=== PATIENT | male | born 1980 | race Two or more races ===

== ENCOUNTER 2021-08-08 03:50 | Emergency (ER) | payer MEDICAID, OTHER ==
[~2021-08-08] VITALS: Ht 172.7 cm; Wt 91.8 kg
[~2021-08-08 03:50] MED LIST: NO HOME MEDS
[2021-08-08] MEDS ORDERED: morphine 4 MG/ML inj SYRINge IV ONE ×2 (04:10→05:50)
[2021-08-08] MEDS ORDERED: ondansetron/PF 4mg/2ml inj IV ONE (04:10)
[2021-08-08 04:48] LABS: EOSINOPHILS # (AUTO) 0.3 X10'3 (0-0.9); HEMATOCRIT 46.6 % (42.0-52.0); MEAN CORPUSCULAR HEMOGLOBIN 29.9 PG (27.0-31.0); MEAN PLATELET VOLUME 8.2 FL (7.4-10.4); WHITE BLOOD COUNT 7.1 X10'3 (4.5-11.0)
[2021-08-08 04:50] LABS: BASOPHILS # (AUTO) 0.1 X10'3 (0-0.2); EOSINOPHILS % (AUTO) 4.2 % (0-6); LYMPHOCYTES # (AUTO) 2.9 X10'3 (1.1-4.8); LYMPHOCYTES % (AUTO) 41.3 % (21-51); MEAN CORPUSCULAR HGB CONC 34.3 g/dL (33.0-36.5); MEAN CORPUSCULAR VOLUME 87.2 FL (78-98); MONOCYTES # (AUTO) 0.9 X10'3 (0-0.9); MONOCYTES % (AUTO) 12.2 % (2-12); NEUTROPHILS # (AUTO) 2.9 X10'3 (1.8-7.7); NEUTROPHILS % (AUTO) 41.3 % (42-75); PLATELET COUNT 297 X10'3 (140-440); RED BLOOD COUNT 5.34 X10'6 (4.70-6.10); RED CELL DISTRIBUTION WIDTH 13.7 % (11.5-14.5)
[2021-08-08] MEDS ORDERED: metoclopramide 5 mg/ml inj IV ONE (05:15)
[2021-08-08 05:16] LABS: ALANINE AMINOTRANSFERASE 42 U/L (12-78); ALBUMIN 3.9 G/DL (3.4-5.0); ALBUMIN/GLOBULIN RATIO 1.1 (1.1-1.5); ALKALINE PHOSPHATASE 95 IU/L (46-116); ANION GAP 11 (8-16); ASPARTATE AMINO TRANSFERASE 31 U/L (10-37); BILIRUBIN,TOTAL 0.2 MG/DL (0.1-1.0); BLOOD UREA NITROGEN 18 MG/DL (7-18); CALCIUM 9.3 MG/DL (8.5-10.1); CHLORIDE 104 MMOL/L (99-107); GLUCOSE 110 MG/DL (70-104); LIPASE 120 U/L (73-393); POTASSIUM 3.5 MMOL/L (3.5-5.1); SODIUM 140 MMOL/L (135-145); TOTAL CARBON DIOXIDE 24.7 MMOL/L (24-32); TOTAL PROTEIN 7.3 G/DL (6.4-8.2); eGFR 83 ML/MIN
[2021-08-08] MEDS ORDERED: iohexol 300mg/ml 100ml inj. ONE (05:34)
[2021-08-08] MEDS ORDERED: normal saline 1000ml 1,000 ML IV ONE (06:05)
[2021-08-08] MEDS ORDERED: HYDR-3965 PO (06:07)
[2021-08-08 06:42] VITALS: BP 142/81
[2021-08-08 06:48] LABS: CLARITY,URINE CLOUDY (Clear); COLOR,URINE YELLOW (Yellow); GLUCOSE, URINE NEGATIVE (Neg); KETONES,URINE NEGATIVE (Neg); LEUKOCYTE ESTERASE ,URINE NEGATIVE (Neg); NITRITES, URINE NEGATIVE (Neg); OCCULT BLOOD,URINE LARGE (Neg); PROTEIN,URINE NEGATIVE (Neg); UROBILINOGEN,URINE 0.2 E.U/dL (0.2-1.0)
[2021-08-08 06:49] LABS: UA COLLECTION TYPE NON-SPECIFIED
[2021-08-08 06:59] LABS: BACTERIA,URINE NONE SEEN /HPF (Neg); RBC,URINE TNTC /HPF (0-2); SQUAMOUS EPITHELIAL CELL,UR NONE SEEN /LPF (FEW); WBC,URINE NONE SEEN /HPF (0-4)
--- NOTE | 2021-08-08 07:10 | NUR ---
Pt given and understands d/c instructions. Ambulatory with a steady gait. IV d/c'd, catheter was intact.
== END 2021-08-08 07:20 | disposition home or self-care (01) ==
LOC: ER 03:50
DX: N20.0 Calculus of kidney (principal); Z79.899 Other long term (current) drug therapy
CPT/HCPCS: 36415; 74177; 80053; 81001; 83690; 85025; 96374; 96375; 96376; 99285; J2270; J2405; J2765; J7030; Q9967